=== PATIENT | male | born 1945 | race Hispanic/Latino ===

== ENCOUNTER 2017-07-04 05:37 | Day surgery (SDC) | payer OTHER ==
[2017-07-03 08:40] VITALS: BP 167/72
[2017-07-03 08:47] LABS: APPEARANCE,URINE Clear (CLEAR); BASOPHILS % (AUTO) 1.1 % (0.0-5.0); BILIRUBIN,URINE Negative (NEGATIVE); COLOR,URINE Yellow (YELLOW); EOSINOPHILS % (AUTO) 7.1 % (0.0-8.0); GLUCOSE, URINE (UA) TRACE mg/dL (NEGATIVE); HEMATOCRIT 32.4 % (42-54); KETONES,URINE Negative (NEGATIVE); LEUKOCYTE ESTERASE ,URINE Negative (NEGATIVE); LYMPHOCYTES % (AUTO) 18.3 % (21.0-51.0); MEAN CORPUSCULAR HEMOGLOBIN 28.9 pg (27.0-33.0); MEAN CORPUSCULAR HGB CONC 33.8 g/dL (32.0-36.0); MEAN CORPUSCULAR VOLUME 85.4 fL (79-99); MONOCYTES % (AUTO) 11.9 % (3.0-13.0); NEUTROPHILS % (AUTO) 61.6 % (40.0-77.0); NITRATE,URINE Negative (NEGATIVE); OCCULT BLOOD,URINE Trace (NEGATIVE); PLATELET COUNT (AUTO) 232 K/uL (130-400); PROTEIN,URINE >=1000 (NEGATIVE); RED BLOOD CELL COUNT(AUTO) 3.79 MIL/uL (4.50-6.20); RED CELL DISTRIBUTION WIDTH 13.9 % (11.0-15.5); UROBILINOGEN,URINE 0.2 mg/dL (0.2-1.0); WHITE BLOOD COUNT (AUTO) 11.4 K/uL (4.8-10.8)
[2017-07-03 08:55] LABS: INR 0.95 (0.85-1.15); PARTIAL THROMBOPLASTIN TIME 27.1 SEC (26.3-35.5)
[2017-07-03 09:03] LABS: BACTERIA,URINE Rare /HPF (None Seen); RBC,URINE 0-1 /HPF (0-1); SQUAMOUS EPITHELIAL CELL,UR Rare /LPF (0-2); WBC,URINE 0-1 /HPF (0-1)
[2017-07-03 09:08] LABS: CREATININE 8.2 mg/dL (0.5-1.5)
[~2017-07-04] VITALS: Ht 162.6 cm; Wt 70.8 kg
[2017-07-04] VITALS (12 sets, daily range): BP systolic 94–144; BP diastolic 53–75
[~2017-07-04 05:37] MED LIST: ACET325T51 PO; ASPI-1114 PO; BUSP10TA3 PO; CHOL400C9 PO; CLOP75TA32 PO; CYAN-35 PO; LEVO75 PO; SEVE800T7 PO; SIMV20TA6 PO; SODIUM CHLORIDE 0.9% 500ML 500 ML IV SCH
[2017-07-04] MEDS ORDERED: SODIUM CHLORIDE 0.9% 1000ML 1,000 ML IV ONE (06:41)
[2017-07-04 06:56] LABS: BASOPHILS % (AUTO) 1.2 % (0.0-5.0); HEMATOCRIT 34.3 % (42-54); LYMPHOCYTES % (AUTO) 17.2 % (21.0-51.0); MEAN CORPUSCULAR HEMOGLOBIN 28.1 pg (27.0-33.0); MEAN CORPUSCULAR HGB CONC 33.2 g/dL (32.0-36.0); MEAN CORPUSCULAR VOLUME 84.6 fL (79-99); MONOCYTES % (AUTO) 11.1 % (3.0-13.0); NEUTROPHILS % (AUTO) 61.5 % (40.0-77.0); PLATELET COUNT (AUTO) 239 K/uL (130-400); RED BLOOD CELL COUNT(AUTO) 4.06 MIL/uL (4.50-6.20); RED CELL DISTRIBUTION WIDTH 14.1 % (11.0-15.5); WHITE BLOOD COUNT (AUTO) 9.5 K/uL (4.8-10.8)
[2017-07-04] MEDS ORDERED: HEPARIN SODIUM 1000UNIT/ML 10ML VIAL ONE (07:15)
[2017-07-04] MEDS ORDERED: IOPAMIDOL-370 100 ML VIAL IV ONE ×2 (07:15→08:02)
[2017-07-04] MEDS ORDERED: LIDOCAINE HCL 2% 20ML ONE (07:15)
[2017-07-04] MEDS ORDERED: NITROGLYCERIN 5 MG/ML 10 ML VIAL IV ONE (07:15)
[2017-07-04] MEDS ORDERED: ISOVUE-370 50ML VIAL IV ONE (07:15)
[2017-07-04] MEDS ORDERED: ISOVUE-300 100 ML VIAL IV ONE (07:19)
[2017-07-04] MEDS ORDERED: FENTANYL CITRATE PF 50 MCG/1 ML 2ML VIAL ONE (08:16)
[2017-07-04] MEDS ORDERED: LABETALOL 20 MG/4 ML DISP.SYRIN IV ONE (08:26)
[2017-07-04] MEDS ORDERED: GLUCAGON 1MG KIT 1 MG ML IM PRN (08:45)
[2017-07-04] MEDS ORDERED: NITROGLYCERIN 1GM/1 INCH PACKET TD SCH (08:45)
[2017-07-04] MEDS ORDERED: DEXTROSE 50%-WATER 50 ML DISP.SYRIN IV PRN (08:45)
[2017-07-04] MEDS ORDERED: METOPROLOL TARTRATE 25 MG TAB PO SCH (09:00)
[2017-07-04] MEDS ORDERED: LISINOPRIL 10 MG TABLET PO SCH (09:00)
[2017-07-04] MEDS ORDERED: INSULIN HUMULIN R 100 UNIT/ML 3ML SQ SCH (11:30)
[2017-07-10] MEDS ORDERED: CYAN-35 PO (10:55)
[2017-09-02] MEDS ORDERED: LISI10TA7 PO (10:21)
[2017-09-02] MEDS ORDERED: ATOR20TA65 PO (10:21)
[2017-09-02] MEDS ORDERED: METO-409 PO (10:21)
[2017-09-02] MEDS ORDERED: LORA-868 PO (10:21)
== END 2017-07-04 14:30 | disposition home or self-care (01) ==
LOC: DAH 05:37
PROVIDERS: ATTEND Internal Medicine Cardiovascular Disease
DX: I13.2 Hypertensive heart and chronic kidney disease with heart failure and with stage 5 chronic kidney disease, or end stage renal disease (principal); N18.6 End stage renal disease; I50.40 Unspecified combined systolic (congestive) and diastolic (congestive) heart failure; I70.213 Atherosclerosis of native arteries of extremities with intermittent claudication, bilateral legs; I25.5 Ischemic cardiomyopathy; I65.23 Occlusion and stenosis of bilateral carotid arteries; Z79.899 Other long term (current) drug therapy; Z99.2 Dependence on renal dialysis
CPT/HCPCS: 36223; 36415 ×2; 71045; 75630; 80048; 81001; 82948 ×3; 85025 ×2; 85610; 85730; 93005; 93458; 99156; 99157; C1894 ×2; J1644; J3010; J3490 ×2; J7030; Q9967 ×3; 99152; 99153

== ENCOUNTER 2017-07-11 08:25 | Inpatient (IN) | payer OTHER ==
[2017-07-10 10:34] VITALS: BP 147/62
[2017-07-10 10:52] LABS: BASOPHILS % (AUTO) 1.4 % (0.0-5.0); EOSINOPHILS % (AUTO) 14.8 % (0.0-8.0); LYMPHOCYTES % (AUTO) 18.6 % (21.0-51.0); MEAN CORPUSCULAR HEMOGLOBIN 28.1 pg (27.0-33.0); MEAN CORPUSCULAR HGB CONC 32.9 g/dL (32.0-36.0); MEAN CORPUSCULAR VOLUME 85.5 fL (79-99); MONOCYTES % (AUTO) 10.1 % (3.0-13.0); NEUTROPHILS % (AUTO) 55.1 % (40.0-77.0); PLATELET COUNT (AUTO) 264 K/uL (130-400); RED BLOOD CELL COUNT(AUTO) 3.86 MIL/uL (4.50-6.20); RED CELL DISTRIBUTION WIDTH 14.3 % (11.0-15.5); WHITE BLOOD COUNT (AUTO) 11.6 K/uL (4.8-10.8)
[2017-07-10 10:59] LABS: HEMOGLOBIN A1C 5.2 % (4.0-6.0)
[2017-07-10 11:02] LABS: ALBUMIN 3.6 g/dL (3.5-5.0); BILIRUBIN,TOTAL 0.3 mg/dL (0.2-1.0); CREATININE 7.5 mg/dL (0.5-1.5); POTASSIUM 4.3 mmol/L (3.5-5.1); TOTAL PROTEIN, SERUM 7.2 g/dL (6.0-8.3)
[2017-07-10 12:00] LABS: INR 0.94 (0.85-1.15); PARTIAL THROMBOPLASTIN TIME 29.5 SEC (26.3-35.5); PROTHROMBIN TIME 9.9 SEC (9.6-11.6)
[~2017-07-11] VITALS: Ht 170.2 cm; Wt 71.1 kg
[2017-07-11] VITALS (9 sets, daily range): BP systolic 113–175; BP diastolic 58–94
[~2017-07-11 08:25] MED LIST changes: -ACET325T51 PO; +BACITRACIN 50,000 UNIT VIAL ONE; -CHOL400C9 PO; -CLOP75TA32 PO; +EPINEPHRINE 1 MG/ML 30ML VIAL IJ ONE; +HEPARIN SODIUM 1000UNIT/ML 10ML VIAL ONE; +NITROGLYCERIN 50 MG/D5% WATER 1 BOT ONE; +OCTYL 2-CYANOACRYLATE 1 EACH TP ONE; +PAPAVERINE HCL 30 MG/ML 2ML VIAL ONE; -SODIUM CHLORIDE 0.9% 500ML 500 ML IV SCH
[2017-07-11] MEDS: CEFUROXIME SODIUM 1.5 GM VIAL IVP SCH ×3 (09:00→22:09)
[2017-07-11] MEDS ORDERED: SODIUM CHLORIDE 0.9% 1000ML 1,000 ML IV ONE ×2 (09:03→14:47)
[2017-07-11] MEDS ORDERED: CHOL400C9 PO (09:34)
[2017-07-11] MEDS ORDERED: CARV3.12 PO (09:34)
[2017-07-11] MEDS ORDERED: ACET-2247 PO (09:34)
[2017-07-11] MEDS ORDERED: FENTANYL CITRATE PF 50 MCG/1 ML 20ML VIAL IJ ONE (12:22)
[2017-07-11] MEDS ORDERED: PROPOFOL 10 MG/ML 20ML VIAL IV ONE (12:23)
[2017-07-11] MEDS ORDERED: MIDAZOLAM HCL 1 MG/ML 2ML VIAL ONE (12:23)
[2017-07-11 13:10] LABS: ABG BASE EXCESS -3.6 mmol/L (-2.0-3.0); ABG HCO3 21.3 mmol/L (21.0-28.0); ABG PCO2 38 mmHg (35-48)
[2017-07-11] MEDS ORDERED: HEPARIN SODIUM 1000UNIT/ML 10ML VIAL ONE ×2 (13:20→13:44)
[2017-07-11] MEDS ORDERED: THROMBIN-JMI 5000 UNIT/VIAL TP ONE (13:20)
[2017-07-11] MEDS ORDERED: AMINOCAPROIC ACID 250 MG/ML 20 ML VIAL IV ONE (13:44)
[2017-07-11] MEDS ORDERED: ROCURONIUM BROMIDE 10MG/1ML 5ML VL ONE (13:44)
[2017-07-11] MEDS ORDERED: LIDOCAINE PF 2% 5ML ABBOJECT ONE (13:44)
[2017-07-11] MEDS ORDERED: EPINEPHRINE 1 MG/ML AMPULE ONE (13:44)
[2017-07-11] MEDS ORDERED: GLYCOPYRROLATE 0.2 MG/ML 5 ML VIAL ONE (13:44)
[2017-07-11] MEDS ORDERED: NOREPINEPHRINE BITARTRATE 1 MG/1 ML ML IV ONE (13:44)
[2017-07-11] MEDS ORDERED: AMIODARONE HCL 900MG/18ML IV ONE (13:44)
[2017-07-11] MEDS ORDERED: PROTAMINE SULFATE 10 MG/ML 25ML VIAL IV ONE (13:44)
[2017-07-11] MEDS ORDERED: ESMOLOL HCL 10 MG/ML 10 ML VIAL ONE (13:44)
[2017-07-11] MEDS ORDERED: MILRINONE-D5W 20 MG/100 ML 0 ML IV ONE (13:44)
[2017-07-11] MEDS ORDERED: SODIUM BICARB 8.4% 50ML SYRINGE ONE (14:11)
[2017-07-11] MEDS ORDERED: SODIUM CHLORIDE 0.9% 500ML 500 ML IV SCH (14:27)
[2017-07-11] MEDS ORDERED: MAGNESIUM 2GM PREMIX 50ML 50 ML IV PRN (14:30)
[2017-07-11] MEDS ORDERED: NOREPINEPHRINE 4MG/NS 250ML 250 ML IV PRN (14:30)
[2017-07-11] MEDS ORDERED: ALBUMIN (HUMAN) 5% 250 ML IV PRN (14:30)
[2017-07-11] MEDS ORDERED: SODIUM CHLORIDE 0.9% 1000ML 1,000 ML IV SCH (14:30)
[2017-07-11] MEDS ORDERED: AMINOCAPROIC ACID 15,000 MG in SODIUM CHLORIDE 0.9% 250 ML IV SCH (14:30)
[2017-07-11] MEDS ORDERED: DEXTROSE 50%-WATER 50 ML DISP.SYRIN IV PRN (14:30)
[2017-07-11] MEDS ORDERED: NICARDIPINE HCL 100 MG in SODIUM CHLORIDE 0.9% 60 ML IV PRN (14:30)
[2017-07-11] MEDS ORDERED: INSULIN REGULAR, HUMAN 3ML 100 UNIT in SODIUM CHLORIDE 0.9% 99 ML IV SCH ×2 (14:30)
[2017-07-11] MEDS ORDERED: ACETAMINOPHEN 650 MG SUPPOSITORY RC PRN (14:30)
[2017-07-11] MEDS ORDERED: SODIUM CHLORIDE 0.9% 250 ML IV PRN (14:30)
[2017-07-11] MEDS ORDERED: GLUCAGON 1MG KIT 1 MG ML IM PRN (14:30)
[2017-07-11] MEDS ORDERED: MORPHINE SULFATE 4 MG/1ML SYG IV PRN (14:30)
[2017-07-11] MEDS ORDERED: CALCIUM GLUCONATE 1 GM in SODIUM CHLORIDE 0.9% 50 ML IV PRN (14:30)
[2017-07-11] MEDS ORDERED: EPINEPHRINE 2 MG in SODIUM CHLORIDE 0.9% 250 ML IV PRN (14:30)
[2017-07-11] MEDS ORDERED: SODIUM BICARB 8.4% 50ML SYRINGE IV PRN (14:30)
[2017-07-11] MEDS ORDERED: NITROGLYCERIN 50 MG/D5% WATER 250 BOT IV SCH (14:30)
[2017-07-11] MEDS ORDERED: POTASSIUM PHOS 15 mMOL+NS250ML 250 ML IV PRN (14:30)
[2017-07-11] MEDS ORDERED: PROPOFOL 1000 MG/100 ML 100 ML IV PRN (14:30)
[2017-07-11] MEDS ORDERED: SODIUM CHLORIDE 0.9% 10 ML VIAL IVP PRN (14:30)
[2017-07-11] MEDS ORDERED: ONDANSETRON HCL 4 MG/2 ML VIAL IV PRN (14:30)
[2017-07-11 15:26] LABS: ABG BASE EXCESS -0.6 mmol/L (-2.0-3.0); ABG HCO3 24.7 mmol/L (21.0-28.0); ABG OXYGEN SATURATION 98.7 % (95.0-99.0); ABG PCO2 43 mmHg (35-48)
[2017-07-11 15:48] LABS: RED BLOOD CELL COUNT(AUTO) 2.98 MIL/uL (4.50-6.20); WHITE BLOOD COUNT (AUTO) 26.2 K/uL (4.8-10.8)
[2017-07-11 15:49] LABS: HEMATOCRIT 25.1 % (42-54); MEAN CORPUSCULAR HEMOGLOBIN 29.2 pg (27.0-33.0); MEAN CORPUSCULAR HGB CONC 34.6 g/dL (32.0-36.0); MEAN CORPUSCULAR VOLUME 84.3 fL (79-99); PLATELET COUNT (AUTO) 170 K/uL (130-400); RED CELL DISTRIBUTION WIDTH 14.1 % (11.0-15.5)
[2017-07-11 16:07] LABS: CREATININE 4.9 mg/dL (0.5-1.5); MAGNESIUM 1.4 mg/dL (1.80-2.40); POTASSIUM 3.4 mmol/L (3.5-5.1)
[2017-07-11 16:19] LABS: ABG BASE EXCESS -2.7 mmol/L (-2.0-3.0); ABG HCO3 21.7 mmol/L (21.0-28.0); ABG OXYGEN SATURATION 98.6 % (95.0-99.0); ABG PCO2 36 mmHg (35-48)
[2017-07-11] MEDS ORDERED: SODIUM BICARB 50MEQ 50ML VIAL ONE (16:21)
[2017-07-11] MEDS: MORPHINE SULFATE 2 MG/ML 1ML SYG IV PRN ×2 (17:42→20:26)
[2017-07-11 19:26] LABS: ABG BASE EXCESS 2.5 mmol/L (-2.0-3.0); ABG HCO3 27.6 mmol/L (21.0-28.0); ABG OXYGEN SATURATION 98.3 % (95.0-99.0); ABG PCO2 45 mmHg (35-48)
[2017-07-11] MEDS: POTASSIUM CHLORIDE 20MEQ/100ML 100 ML IV PRN (20:25)
[2017-07-11] MEDS: WATER FOR INJECTION,STERILE 20 ML VIAL IJ SCH (22:09)
[2017-07-11] MEDS ORDERED: CEFUROXIME 1.5GM+NS 100ML 100 ML IV SCH (22:30)
[2017-07-12] VITALS (24 sets, daily range): BP systolic 87–160; BP diastolic 40–75
[2017-07-12 00:47] LABS: ABG BASE EXCESS -3.3 mmol/L (-2.0-3.0); ABG HCO3 21.9 mmol/L (21.0-28.0); ABG PCO2 40 mmHg (35-48)
[2017-07-12] MEDS ORDERED: SODIUM BICARB 50MEQ 50ML VIAL ONE (00:50)
[2017-07-12 01:44] LABS: ABG BASE EXCESS 3.8 mmol/L (-2.0-3.0); ABG HCO3 28.5 mmol/L (21.0-28.0); ABG PCO2 44 mmHg (35-48)
[2017-07-12 03:46] LABS: ABG BASE EXCESS 3.8 mmol/L (-2.0-3.0); ABG HCO3 29.6 mmol/L (21.0-28.0); ABG OXYGEN SATURATION 99.7 % (95.0-99.0); ABG PCO2 49 mmHg (35-48)
[2017-07-12 04:10] LABS: HEMATOCRIT 23.7 % (42-54); MEAN CORPUSCULAR HEMOGLOBIN 28.4 pg (27.0-33.0); MEAN CORPUSCULAR HGB CONC 33.6 g/dL (32.0-36.0); MEAN CORPUSCULAR VOLUME 84.5 fL (79-99); PLATELET COUNT (AUTO) 160 K/uL (130-400); RED BLOOD CELL COUNT(AUTO) 2.81 MIL/uL (4.50-6.20); RED CELL DISTRIBUTION WIDTH 14.2 % (11.0-15.5); WHITE BLOOD COUNT (AUTO) 15.3 K/uL (4.8-10.8)
[2017-07-12 04:22] LABS: CREATININE 6.2 mg/dL (0.5-1.5); MAGNESIUM 2.5 mg/dL (1.80-2.40); PHOSPHORUS 3.1 mg/dL (2.5-4.9); POTASSIUM 4.1 mmol/L (3.5-5.1)
[2017-07-12] MEDS: HYDROCODONE/ACETAMINOPHEN 5/325 MG TAB PO PRN ×4 (05:05→23:39)
[2017-07-12] MEDS: METOPROLOL TARTRATE 25 MG TAB PO SCH ×2 (09:00→20:41)
[2017-07-12] MEDS: ASPIRIN 81MG TAB.CHEW PO SCH (09:33)
[2017-07-12] MEDS: WATER FOR INJECTION,STERILE 20 ML VIAL IJ SCH ×2 (09:35→21:43)
[2017-07-12] MEDS: CEFUROXIME SODIUM 1.5 GM VIAL IVP SCH ×2 (09:35→21:59)
[2017-07-12] MEDS: PANTOPRAZOLE SODIUM 40 MG TABLET.DR PO SCH (09:35)
[2017-07-12] MEDS: INSULIN HUMULIN R 100 UNIT/ML 3ML SQ SCH ×3 (11:30→21:00)
[2017-07-12] MEDS ORDERED: COMPOUND IV MISC 1 EACH IVSOLN MISC PRN (12:15)
[2017-07-12] MEDS: ACETAMINOPHEN 325 MG TAB PO PRN ×2 (12:40→17:09)
[2017-07-12] MEDS ORDERED: ALBUMIN (HUMAN) 5% 250 ML IV ONE (18:00)
[2017-07-12] MEDS: ATORVASTATIN CALCIUM 40 MG TABLET PO SCH (21:07)
[2017-07-13] VITALS (19 sets, daily range): BP systolic 107–143; BP diastolic 46–75
[2017-07-13] MEDS: HYDROCODONE/ACETAMINOPHEN 5/325 MG TAB PO PRN ×3 (03:17→22:13)
[2017-07-13 04:09] LABS: HEMATOCRIT 21.5 % (42-54); MEAN CORPUSCULAR HEMOGLOBIN 29.2 pg (27.0-33.0); MEAN CORPUSCULAR HGB CONC 33.7 g/dL (32.0-36.0); MEAN CORPUSCULAR VOLUME 86.7 fL (79-99); PLATELET COUNT (AUTO) 159 K/uL (130-400); RED BLOOD CELL COUNT(AUTO) 2.48 MIL/uL (4.50-6.20); WHITE BLOOD COUNT (AUTO) 18.8 K/uL (4.8-10.8)
[2017-07-13 04:41] LABS: POTASSIUM 4.5 mmol/L (3.5-5.1)
[2017-07-13 04:46] LABS: CREATININE 7.9 mg/dL (0.5-1.5)
[2017-07-13] MEDS: INSULIN HUMULIN R 100 UNIT/ML 3ML SQ SCH ×4 (06:20→20:11)
[2017-07-13] MEDS: ASPIRIN 81MG TAB.CHEW PO SCH (08:16)
[2017-07-13] MEDS: IRON SUCROSE COMPLEX 100 MG in SODIUM CHLORIDE 0.9% 50 ML IV SCH (08:16)
[2017-07-13] MEDS: METOPROLOL TARTRATE 25 MG TAB PO SCH ×2 (08:16→20:39)
[2017-07-13] MEDS: PANTOPRAZOLE SODIUM 40 MG TABLET.DR PO SCH (08:16)
[2017-07-13] MEDS: WATER FOR INJECTION,STERILE 20 ML VIAL IJ SCH ×2 (10:30→20:36)
[2017-07-13] MEDS ORDERED: ALBUMIN (HUMAN) 25% 100 ML IV ONE (11:19)
[2017-07-13] MEDS ORDERED: HEPARIN SODIUM 5000UNIT/ML 1ML VIAL ONE (13:02)
[2017-07-13] MEDS ORDERED: SODIUM CHLORIDE 0.9% 1000ML 1,000 ML IV ONE (13:02)
[2017-07-13] MEDS ORDERED: HEPARIN SODIUM 5000UNIT/ML 1ML VIAL IJ PRN ×2 (17:15)
[2017-07-13] MEDS ORDERED: ALBUMIN (HUMAN) 25% 100 ML IV PRN (17:15)
[2017-07-13] MEDS ORDERED: SODIUM CHLORIDE 0.9% 1000ML 1,000 ML IV PRN (17:15)
[2017-07-13] MEDS ORDERED: 0.9% SODIUM CHLORIDE 250 ML IV BAG IV PRN (17:15)
[2017-07-13] MEDS ORDERED: EPOETIN ALFA 10,000 UNIT/ML VIAL SQ SCH (17:15)
[2017-07-13] MEDS: ATORVASTATIN CALCIUM 40 MG TABLET PO SCH (20:39)
[2017-07-14] MEDS: HYDROCODONE/ACETAMINOPHEN 5/325 MG TAB PO PRN ×3 (02:59→23:25)
[2017-07-14 03:37] VITALS: BP 118/57
[2017-07-14 03:56] LABS: MEAN CORPUSCULAR HEMOGLOBIN 28.1 pg (27.0-33.0); MEAN CORPUSCULAR HGB CONC 32.4 g/dL (32.0-36.0); MEAN CORPUSCULAR VOLUME 86.9 fL (79-99); PLATELET COUNT (AUTO) 177 K/uL (130-400); RED BLOOD CELL COUNT(AUTO) 2.25 MIL/uL (4.50-6.20); RED CELL DISTRIBUTION WIDTH 14.7 % (11.0-15.5); WHITE BLOOD COUNT (AUTO) 15.3 K/uL (4.8-10.8)
[2017-07-14 04:00] LABS: HEMATOCRIT 19.6 % (42-54)
[2017-07-14 04:06] LABS: BILIRUBIN,TOTAL 0.4 mg/dL (0.2-1.0); CREATININE 5.6 mg/dL (0.5-1.5); POTASSIUM 3.6 mmol/L (3.5-5.1); TOTAL PROTEIN, SERUM 6.3 g/dL (6.0-8.3)
[2017-07-14] MEDS: INSULIN HUMULIN R 100 UNIT/ML 3ML SQ SCH ×4 (06:14→21:00)
[2017-07-14 07:10] VITALS: BP 135/65
[2017-07-14] MEDS: WATER FOR INJECTION,STERILE 20 ML VIAL IJ SCH ×2 (07:38→22:10)
[2017-07-14] MEDS: ASPIRIN 81MG TAB.CHEW PO SCH (08:22)
[2017-07-14] MEDS: METOPROLOL TARTRATE 25 MG TAB PO SCH ×2 (08:22→20:22)
[2017-07-14] MEDS: PANTOPRAZOLE SODIUM 40 MG TABLET.DR PO SCH (08:22)
[2017-07-14] MEDS: ENOXAPARIN SODIUM 30 MG/0.3 ML SQ SCH (08:23)
[2017-07-14] MEDS: IRON SUCROSE COMPLEX 100 MG in SODIUM CHLORIDE 0.9% 50 ML IV SCH (08:35)
[2017-07-14 11:22] VITALS: BP 140/64
[2017-07-14] MEDS: ACETAMINOPHEN 325 MG TAB PO PRN (14:06)
[2017-07-14 16:00] VITALS: BP 136/67
[2017-07-14 19:49] VITALS: BP 130/65
[2017-07-14] MEDS: ATORVASTATIN CALCIUM 40 MG TABLET PO SCH (20:22)
[2017-07-14 23:53] VITALS: BP 156/77
[2017-07-15 03:48] VITALS: BP 144/74
[2017-07-15 03:57] LABS: MEAN CORPUSCULAR HEMOGLOBIN 30.8 pg (27.0-33.0); MEAN CORPUSCULAR HGB CONC 36.2 g/dL (32.0-36.0); MEAN CORPUSCULAR VOLUME 85.1 fL (79-99); NUCLEATED RED BLOOD CELLS 0.1 % (0.0-0.19); PLATELET COUNT (AUTO) 177 K/uL (130-400); RED BLOOD CELL COUNT(AUTO) 2.38 MIL/uL (4.50-6.20); RED CELL DISTRIBUTION WIDTH 14.5 % (11.0-15.5); WHITE BLOOD COUNT (AUTO) 13.2 K/uL (4.8-10.8)
[2017-07-15 04:00] LABS: HEMATOCRIT 20.3 % (42-54)
[2017-07-15 04:08] LABS: CREATININE 7.2 mg/dL (0.5-1.5); POTASSIUM 3.2 mmol/L (3.5-5.1)
[2017-07-15] MEDS: INSULIN HUMULIN R 100 UNIT/ML 3ML SQ SCH ×4 (05:50→21:00)
[2017-07-15 07:00] VITALS: BP 156/77
[2017-07-15] MEDS: HYDROCODONE/ACETAMINOPHEN 5/325 MG TAB PO PRN ×3 (08:24→23:29)
[2017-07-15] MEDS: LISINOPRIL 5 MG TABLET PO SCH ×2 (08:24→21:27)
[2017-07-15] MEDS: METOPROLOL TARTRATE 25 MG TAB PO SCH ×2 (08:24→21:27)
[2017-07-15] MEDS: PANTOPRAZOLE SODIUM 40 MG TABLET.DR PO SCH (08:24)
[2017-07-15] MEDS: ASPIRIN 81MG TAB.CHEW PO SCH (08:24)
[2017-07-15] MEDS: ENOXAPARIN SODIUM 30 MG/0.3 ML SQ SCH (08:24)
[2017-07-15] MEDS: IRON SUCROSE COMPLEX 100 MG in SODIUM CHLORIDE 0.9% 50 ML IV SCH ×2 (09:00→10:06)
[2017-07-15] MEDS: WATER FOR INJECTION,STERILE 20 ML VIAL IJ SCH ×2 (10:30→22:30)
[2017-07-15 11:00] VITALS: BP 136/65
[2017-07-15 16:00] VITALS: BP 139/76
[2017-07-15] MEDS ORDERED: EPOETIN ALFA 10,000 UNIT/ML VIAL SQ SCH (16:00)
[2017-07-15] MEDS ORDERED: HEPARIN SODIUM 5000UNIT/ML 1ML VIAL IJ PRN (16:00)
[2017-07-15 20:13] VITALS: BP 157/80
[2017-07-15] MEDS: ATORVASTATIN CALCIUM 40 MG TABLET PO SCH (21:27)
[2017-07-16] VITALS (8 sets, daily range): BP systolic 108–154; BP diastolic 61–97
[2017-07-16 03:53] LABS: HEMATOCRIT 26.9 % (42-54); MEAN CORPUSCULAR HEMOGLOBIN 30.4 pg (27.0-33.0); MEAN CORPUSCULAR HGB CONC 35.8 g/dL (32.0-36.0); MEAN CORPUSCULAR VOLUME 84.9 fL (79-99); NUCLEATED RED BLOOD CELLS 0.2 % (0.0-0.19); PLATELET COUNT (AUTO) 209 K/uL (130-400); RED BLOOD CELL COUNT(AUTO) 3.16 MIL/uL (4.50-6.20); RED CELL DISTRIBUTION WIDTH 14.6 % (11.0-15.5); WHITE BLOOD COUNT (AUTO) 12.4 K/uL (4.8-10.8)
[2017-07-16 04:10] LABS: CREATININE 5.2 mg/dL (0.5-1.5)
[2017-07-16 04:21] LABS: POTASSIUM 2.9 mmol/L (3.5-5.1)
[2017-07-16] MEDS ORDERED: LIDOCAINE HCL-MPF 1% 2ML VIAL ONE (05:34)
[2017-07-16] MEDS: POTASSIUM CHLORIDE 20MEQ/100ML 100 ML IV PRN (05:49)
[2017-07-16] MEDS: INSULIN HUMULIN R 100 UNIT/ML 3ML SQ SCH ×4 (06:00→21:00)
[2017-07-16] MEDS: ASPIRIN 81MG TAB.CHEW PO SCH (07:30)
[2017-07-16] MEDS: LISINOPRIL 5 MG TABLET PO SCH (07:30)
[2017-07-16] MEDS: METOPROLOL TARTRATE 25 MG TAB PO SCH ×3 (07:30→21:23)
[2017-07-16] MEDS: PANTOPRAZOLE SODIUM 40 MG TABLET.DR PO SCH (07:30)
[2017-07-16] MEDS: WATER FOR INJECTION,STERILE 20 ML VIAL IJ SCH ×2 (07:31→22:30)
[2017-07-16] MEDS: IRON SUCROSE COMPLEX 100 MG in SODIUM CHLORIDE 0.9% 50 ML IV SCH (07:31)
[2017-07-16] MEDS: ENOXAPARIN SODIUM 30 MG/0.3 ML SQ SCH (07:31)
[2017-07-16] MEDS ORDERED: LACTULOSE 20 GM/30 ML UDCUP PO PRN ×2 (08:15→09:15)
[2017-07-16] MEDS: LISINOPRIL 10 MG TABLET PO SCH ×2 (09:00→21:22)
[2017-07-16] MEDS: DOCUSATE SODIUM 100 MG CAP PO SCH ×2 (09:16→21:23)
[2017-07-16] MEDS: HYDROCODONE/ACETAMINOPHEN 5/325 MG TAB PO PRN (17:31)
[2017-07-16] MEDS: ATORVASTATIN CALCIUM 40 MG TABLET PO SCH (21:20)
[2017-07-17 00:14] VITALS: BP 107/67
[2017-07-17] MEDS: HYDROCODONE/ACETAMINOPHEN 5/325 MG TAB PO PRN ×2 (02:20→06:10)
[2017-07-17 03:31] LABS: HEMATOCRIT 29.4 % (42-54); MEAN CORPUSCULAR HEMOGLOBIN 29.6 pg (27.0-33.0); MEAN CORPUSCULAR HGB CONC 34.6 g/dL (32.0-36.0); MEAN CORPUSCULAR VOLUME 85.6 fL (79-99); NUCLEATED RED BLOOD CELLS 0.1 % (0.0-0.19); PLATELET COUNT (AUTO) 229 K/uL (130-400); RED BLOOD CELL COUNT(AUTO) 3.44 MIL/uL (4.50-6.20); RED CELL DISTRIBUTION WIDTH 14.4 % (11.0-15.5); WHITE BLOOD COUNT (AUTO) 12.7 K/uL (4.8-10.8)
[2017-07-17 03:54] LABS: POTASSIUM 3.2 mmol/L (3.5-5.1)
[2017-07-17 03:57] VITALS: BP 143/72
[2017-07-17] MEDS: INSULIN HUMULIN R 100 UNIT/ML 3ML SQ SCH ×4 (06:14→21:00)
[2017-07-17 07:00] VITALS: BP 133/77
[2017-07-17] MEDS: ACETAMINOPHEN 325 MG TAB PO PRN (09:45)
[2017-07-17 11:00] VITALS: BP 127/76
[2017-07-17] MEDS ORDERED: ALBUMIN (HUMAN) 25% 100 ML IV PRN (11:30)
[2017-07-17] MEDS ORDERED: HEPARIN SODIUM 5000UNIT/ML 1ML VIAL IJ PRN (11:30)
[2017-07-17] MEDS: METOPROLOL TARTRATE 25 MG TAB PO SCH ×2 (14:11→21:04)
[2017-07-17] MEDS: ENOXAPARIN SODIUM 30 MG/0.3 ML SQ SCH (14:11)
[2017-07-17] MEDS: PANTOPRAZOLE SODIUM 40 MG TABLET.DR PO SCH (14:12)
[2017-07-17] MEDS: ASPIRIN 81MG TAB.CHEW PO SCH (14:12)
[2017-07-17] MEDS: DOCUSATE SODIUM 100 MG CAP PO SCH ×2 (14:12→21:04)
[2017-07-17] MEDS: LISINOPRIL 10 MG TABLET PO SCH ×2 (14:12→21:04)
[2017-07-17] MEDS ORDERED: EPOETIN ALFA 10,000 UNIT/ML VIAL SQ SCH (15:00)
[2017-07-17 16:00] VITALS: BP 153/85
[2017-07-17] MEDS: WATER FOR INJECTION,STERILE 20 ML VIAL IJ SCH (16:30)
[2017-07-17] MEDS: IRON SUCROSE COMPLEX 100 MG in SODIUM CHLORIDE 0.9% 50 ML IV SCH (17:26)
[2017-07-17] MEDS: ATORVASTATIN CALCIUM 40 MG TABLET PO SCH (21:04)
[2017-09-02] MEDS ORDERED: METO-409 PO (10:21)
[2017-09-02] MEDS ORDERED: LISI10TA7 PO (10:21)
[2017-09-02] MEDS ORDERED: LORA-868 PO (10:21)
[2017-09-02] MEDS ORDERED: ATOR20TA65 PO (10:21)
== END 2017-07-17 21:50 | DRG 235 ==
LOC: DAHIP 08:25 → 2CV 14:45 → 2CH 07-12 06:21 → 2AH 07-14 14:03
PROVIDERS: ADMIT Thoracic Surgery (Cardiothoracic Vascular Surgery); ATTEND Thoracic Surgery (Cardiothoracic Vascular Surgery)
PROC: 02100Z9 Bypass Coronary Artery, One Artery from Left Internal Mammary, Open Approach (ICD-10-PCS; principal; 2017-07-11 12:21)
PROC: 021109W Bypass Coronary Artery, Two Arteries from Aorta with Autologous Venous Tissue, Open Approach (ICD-10-PCS; 2017-07-11 12:21)
PROC: 06BQ4ZZ Excision of Left Saphenous Vein, Percutaneous Endoscopic Approach (ICD-10-PCS; 2017-07-11 12:21)
DX: I25.119 Atherosclerotic heart disease of native coronary artery with unspecified angina pectoris (principal); N18.6 End stage renal disease; I13.2 Hypertensive heart and chronic kidney disease with heart failure and with stage 5 chronic kidney disease, or end stage renal disease; E11.40 Type 2 diabetes mellitus with diabetic neuropathy, unspecified; E11.22 Type 2 diabetes mellitus with diabetic chronic kidney disease; E78.00 Pure hypercholesterolemia, unspecified; E07.9 Disorder of thyroid, unspecified; E03.9 Hypothyroidism, unspecified; I65.23 Occlusion and stenosis of bilateral carotid arteries; I50.9 Heart failure, unspecified; E11.51 Type 2 diabetes mellitus with diabetic peripheral angiopathy without gangrene; D64.9 Anemia, unspecified; E78.5 Hyperlipidemia, unspecified; I25.5 Ischemic cardiomyopathy; Z99.2 Dependence on renal dialysis; Z95.1 Presence of aortocoronary bypass graft; I25.2 Old myocardial infarction; Z95.820 Peripheral vascular angioplasty status with implants and grafts; Z83.3 Family history of diabetes mellitus; Z82.49 Family history of ischemic heart disease and other diseases of the circulatory system; Z79.82 Long term (current) use of aspirin
CPT/HCPCS: 36415; 36600; 71045; 71046; 80048; 80053; 82330; 82435; 82803; 82947; 82948; 83036; 83605; 83735; 84100; 84132; 84295; 85018; 85025; 85027; 85347; 85610; 85730; 86850; 86900; 86901; 86922; 90935; 93005; 94002; 94003; 94010; 94150; 97039; A4218; A4344; A7048; J0171; J0282; J0697; J0885; J1644; J1650; J1756; J1815; J2001; J2250; J2260; J2405; J2440; J2704; J2720; J3010; J3475; J3480; J3490; J7030; J7040; P9016; P9045; P9046

== ENCOUNTER 2017-09-03 06:33 | Day surgery (SDC) | payer OTHER ==
[2017-09-02 09:40] LABS: EOSINOPHILS % (AUTO) 5.6 % (0.0-8.0); HEMATOCRIT 38.5 % (42-54); LYMPHOCYTES % (AUTO) 19.6 % (21.0-51.0); MEAN CORPUSCULAR HEMOGLOBIN 28.1 pg (27.0-33.0); MEAN CORPUSCULAR HGB CONC 32.8 g/dL (32.0-36.0); MEAN CORPUSCULAR VOLUME 85.8 fL (79-99); MONOCYTES % (AUTO) 9.4 % (3.0-13.0); NEUTROPHILS % (AUTO) 64.4 % (40.0-77.0); PLATELET COUNT (AUTO) 203 K/uL (130-400); RED BLOOD CELL COUNT(AUTO) 4.49 MIL/uL (4.50-6.20); RED CELL DISTRIBUTION WIDTH 15.5 % (11.0-15.5); WHITE BLOOD COUNT (AUTO) 9.3 K/uL (4.8-10.8)
[2017-09-02 09:46] LABS: HEMOGLOBIN A1C 5.1 % (4.0-6.0)
[2017-09-02 09:50] LABS: ALBUMIN 3.7 g/dL (3.5-5.0); BILIRUBIN,TOTAL 0.4 mg/dL (0.2-1.0); POTASSIUM 4.5 mmol/L (3.5-5.1); TOTAL PROTEIN, SERUM 7.3 g/dL (6.0-8.3)
[2017-09-02 09:52] LABS: CREATININE 8.3 mg/dL (0.5-1.5)
[2017-09-02 09:55] LABS: INR 0.98 (0.85-1.15); PARTIAL THROMBOPLASTIN TIME 27.7 SEC (26.3-35.5); PROTHROMBIN TIME 10.3 SEC (9.6-11.6)
[2017-09-02 10:13] VITALS: BP 200/97
[2017-09-02 10:23] VITALS: BP 168/82
[2017-09-03] VITALS (17 sets, daily range): BP systolic 141–183; BP diastolic 50–77
[~2017-09-03] VITALS: Ht 162.6 cm; Wt 71.8 kg
[~2017-09-03 06:33] MED LIST changes: +ACET-2247 PO; -ASPI-1114 PO; +ATOR20TA65 PO; -BACITRACIN 50,000 UNIT VIAL ONE; +CEFUROXIME SODIUM 1.5 GM VIAL IVP SCH; +CHOL400C9 PO; -EPINEPHRINE 1 MG/ML 30ML VIAL IJ ONE; -HEPARIN SODIUM 1000UNIT/ML 10ML VIAL ONE; +LISI10TA7 PO; +LORA-868 PO; +METO-409 PO; -NITROGLYCERIN 50 MG/D5% WATER 1 BOT ONE; -OCTYL 2-CYANOACRYLATE 1 EACH TP ONE; -PAPAVERINE HCL 30 MG/ML 2ML VIAL ONE; -SIMV20TA6 PO
[2017-09-03] MEDS ORDERED: SODIUM CHLORIDE 0.9% 1000ML 1,000 ML IV ONE (07:00)
[2017-09-03] MEDS ORDERED: PAPAVERINE HCL 30 MG/ML 2ML VIAL ONE (07:18)
[2017-09-03] MEDS ORDERED: OCTYL 2-CYANOACRYLATE 1 EACH TP ONE (07:18)
[2017-09-03] MEDS ORDERED: BACITRACIN 50,000 UNIT VIAL ONE (07:19)
[2017-09-03] MEDS ORDERED: CLOP75TA14 PO (07:34)
[2017-09-03] MEDS ORDERED: ROCURONIUM BROMIDE 10MG/1ML 5ML VL ONE (08:36)
[2017-09-03] MEDS ORDERED: FENTANYL CITRATE PF 50 MCG/1 ML 5ML AMP IV ONE (08:57)
[2017-09-03] MEDS ORDERED: THROMBIN-JMI 5000 UNIT/VIAL TP ONE (09:07)
[2017-09-03] MEDS ORDERED: MEPERIDINE-PF 25 MG/ML SYG ONE ×2 (10:34→10:40)
[2017-09-03] MEDS ORDERED: ACETAMINOPHEN EXTRA STRENGTH 500 MG TABLET ONE (12:01)
== END 2017-09-03 13:15 | disposition home or self-care (01) ==
LOC: DAH 06:33
PROVIDERS: ATTEND Thoracic Surgery (Cardiothoracic Vascular Surgery)
DX: I13.11 Hypertensive heart and chronic kidney disease without heart failure, with stage 5 chronic kidney disease, or end stage renal disease (principal); E11.22 Type 2 diabetes mellitus with diabetic chronic kidney disease; I25.10 Atherosclerotic heart disease of native coronary artery without angina pectoris; I21.4 Non-ST elevation (NSTEMI) myocardial infarction; I25.5 Ischemic cardiomyopathy; I73.9 Peripheral vascular disease, unspecified; E78.5 Hyperlipidemia, unspecified; D64.89 Other specified anemias; Z95.1 Presence of aortocoronary bypass graft; Z99.2 Dependence on renal dialysis; Z79.01 Long term (current) use of anticoagulants; Z79.82 Long term (current) use of aspirin; Z79.899 Other long term (current) drug therapy
CPT/HCPCS: 36415; 36821; 71046; 80053; 83036; 85025; 85610; 85730; 86850; 86900; 86901; 86922; 93005; A4218; A4649 ×3; A6219; C1713 ×2; J0697; J2175 ×2; J2440; J3010; J3490 ×2; J7030 ×2; J7040